=== PATIENT | male | born 1970 | race Caucasian/White ===

== ENCOUNTER 2018-06-19 15:05 | Inpatient (IN) ==
[2018-06-19] MEDS ORDERED: CLINDAMYCIN PHOSPHATE 600 MG in DEXTROSE 5 % IN WATER 100 ML IV ONE ×2 (15:40)
[2018-06-19 16:05] LABS: Hemoglobin 11.3 gm/dL (13.5-18.0); Mean Cell Volume 92.9 fl (78-100); Mean Corpuscular Hemoglobin 30.9 pg (27-31); Mean Corpuscular Hgb Conc 33.2 g/dl (32-36); Mean Platelet Volume 8.8 fl (8-11.3); Neutrophil # 6.9 K/mm3 (1.3-6.0); Platelet Count 344 K/mm3 (150-450); Red Blood Count 3.66 M/mm3 (4.7-6.0); Red Cell Distribution Width 11.9 % (11.5-14.0); White Blood Count 9.9 K/mm3 (4.0-10.5)
[2018-06-19 16:15] LABS: Albumin * 3.6 gm/dl (3.4-5.0); BUN/Creatinine Ratio 11.5 (9.0-21.6); Bilirubin, Total 0.3 mg/dL (0.0-1.1); CRP 3.9 mg/dL (0.0-0.9); Ca. Corrected For Albumin 8.1 mg/dL (8.4-10.2); Calcium * 8.1 mg/dL (7.9-10.9); Carbon Dioxide 29.3 mmol/L (24-32.6); Potassium 4.3 mmol/L (3.4-4.6); Total Protein 7.6 gm/dL (6.2-8.2)
[2018-06-19] MEDS ORDERED: VANCOMYCIN HCL 1 GM in DEXTROSE 5 % IN WATER 250 ML IV ONE ×2 (17:00)
--- NOTE | 2018-06-19 17:45 | ERNOTE ---
Lower Extremity HPI - Narrative Date of Service: 06/19/18 - General Lower Extremities Pain: foot: left Time Seen by Provider: 06/19/18 15:24 Source: patient Exam Limitations: no limitations - Immun/Allergies/Home Medications Immunizations: IMMUNIZATION HX Immunizations Up to Date Yes History of Influenza Vaccine Yes Allergies/Adverse Reactions: Allergies Allergy/AdvReac Type Severity Reaction Status Date / Time cetirizine [From [facility]] Allergy Verified 06/19/18 15:16 Home Medications: HOME MEDICATIONS Gabapentin [Neurontin] 100 mg PO DAILY 06/19/18 [Last Taken Unknown] Insulin Glargine,Hum.rec.anlog [Lantus] 35 units SC HS 06/19/18 [Last Taken Unknown] Insulin Lispro [Humalog] 100 unit SQ 06/19/18 [Last Taken Unknown] traMADol HCL [Ultram] 50 mg PO DAILY 06/19/18 [Last Taken Unknown] - History of Present Illness Narrative: Patient presents to the ED for left foot problem. He is a diabetic who has been having problems with his left foot ever since stepping on a nail in March. he was in the Hospital for this in [place], had surgery. Has been on outpatient courses of ABx (Bactrim). Just had a culture by PCP but not currently on ABx. Old wound has opened up and more redness and swelling noted. No fever. This has been worsening since going back to work and being on it in steel toed boots Occurred: other - gradually worsening over the last couple of days Location of Incident: other - no new injury Method of Injury: Reports: other - originally a nail injury Modifying Factors - (Improves): Reports: other - nothing Modifying Factors - (Worsens): Reports: other - nothign Associated Symptoms: Denies: unable to bear weight Other Injuries: Reports: none Subsequent Symptoms: Denies: motor loss Prior Treament: Reports: recently seen, treated by physician Review of Systems - Review of Systems Constitutional: Absent: fever Respiratory: Absent: shortness of breath Cardiology: Absent: chest pain Gastrointestinal/Abdominal: Absent: abdominal pain Genitourinary: Absent: dysuria All Other Systems: All systems neg except as marked Medical History (Last Reviewed 06/19/18 @ 17:40 by Black Vidales MD) Diabetes mellitus Hypertension Surgical History: Surgical History (Last Reviewed 06/19/18 @ 17:40 by Black Vidales MD) H/O foot surgery History of cataract surgery Social History: Preferred Language Korean Smoking Status Current every day smoker Alcohol Use none Drug Use none No Social History Section defined Physical Exam - Physical Exam General Appearance: Present: alert, no apparent distress Head Exam: Present: normal inspection, no evidence of injury Eye Exam: Normal inspection: bilateral, PERRL: bilateral Ears, Nose, Throat: Present: normal ENT inspection Neck: Present: normal inspection Respiratory: Present: no respiratory distress Cardiovascular/Chest: Present: regular rate, rhythm, normal peripheral pulses Gastrointestinal/Abdominal: Present: nontender, soft Back Exam: Present: normal range of motion Extremity Exam: Present: other - redness and swelling left foot. redness especially around secvond and 3rd toes but also up onto the dorsum of the foot. No necrotic areas. samll apparent area of pus at the base of the 2nd toe. No evidenc eof nec fasc. Neurological Exam: Present: alert, no motor/sensory deficits Skin Exam: Present: normal color, warm/dry, other - apparent cellulitis left foot ED Progress - Results and Orders Patient's Lab Results:: I have reviewed the patient's lab results. - Vital Signs Patient's Vital Signs:: I have reviewed the patient's vital signs. Vital Signs: Vital Signs 06/19/18 15:08 Temperature 36.4 C Pulse Rate 94 Respiratory Rate 12 Blood Pressure 150/83 H O2 Sat by Pulse Oximetry 100 - X-Ray X-Ray #1 X-Ray: foot Interpretation: Interp. by me X-ray Comments: apparent osteo head of 2nd metatarsal - Progress/Reassessment Chief Complaint: Foot Injury/Pain Progress Note-Subjective: 06/19/18 17:43 IV ABx given. D/W Dr Alex and Mir Cornelius. Will admit. Patient agreeable. Departure Clinical Impression: Diabetes, Foot infection, Osteomyelitis - Departure Disposition: Still a patient Condition: Stable
--- NOTE | 2018-06-19 18:53 | HP ---
Chief Complaint - Chief Complaint Date of Service: 06/19/18 Time of Service: 18:26 Chief Complaint: foot wound History of Present Illness: Patient with a PMHx of Type I diabetes presents with worsening foot wound. He stepped on a nail in March, and underwent surgery in [place], [place] April 21. He believes that during that surgery, soft tissue was debrided, but he does not believe any bone was removed. A few weeks after that surgery, he again developed redness and was put on an antibiotic, which caused him to break out in hives over his legs. He received a steroid shot and his glucose increased to greater than 500. His baseline blood sugar is around 200. He has not been on antibiotics for about a month. He has been working, and would have some swelling in that foot. Over the last 2 days, he noticed increased swelling and redness, and noticed pus oozing from between his toes. He denies fever, changes in appetite, body aches, diarrhea, or other symptoms. Medical History (Last Reviewed 06/19/18 @ 17:40 by Black Vidales MD) Diabetes mellitus Hypertension Surgical History: Surgical History (Last Reviewed 06/19/18 @ 17:40 by Black Vidales MD) H/O foot surgery History of cataract surgery Family History: Family History (Last Updated 06/19/18 @ 18:16 by Alison Alvarado RN) Other No pertinent family history Social History: Preferred Language Greek Smoking Status Current every day smoker Alcohol Use none Drug Use none No Social History Section defined Review Of Systems (GEN) - Review of Systems Generalized/Overall Review: Absent: Fever Respiratory: Absent: Shortness of Breath Cardiac: Present: Edema. Absent: Chest Pain Abdominal: Absent: Vomiting, Diarrhea Genitourinary: Absent: Dysuria Musculoskeletal: Present: Joint Pain - hands and shoulders Immunizations: IMMUNIZATION HX Immunizations Up to Date Yes History of Influenza Vaccine Yes Allergies/Adverse Reactions: Allergies Allergy/AdvReac Type Severity Reaction Status Date / Time cetirizine [From [facility]] Allergy Hives Verified 06/19/18 18:33 Home Medications: HOME MEDICATIONS Gabapentin [Neurontin] 100 mg PO DAILY 06/19/18 [Last Taken Unknown] Insulin Glargine,Hum.rec.anlog [Lantus] 35 units SC HS 06/19/18 [Last Taken Unknown] Insulin Lispro [Humalog] 100 unit SQ 06/19/18 [Last Taken Unknown] traMADol HCL [Ultram] 50 mg PO DAILY 06/19/18 [Last Taken Unknown] Exam - Exam Vital Signs: Vital Signs - Last Taken Temp 36.4 C 06/19/18 15:08 Pulse 91 06/19/18 17:23 Resp 15 06/19/18 17:23 BP 143/80 H 06/19/18 17:23 Pulse Ox 100 06/19/18 17:23 Constitutional: Present: Alert, Oriented x3, Cooperative, No distress Neck: Absent: lymphadenopathy (R), lymphadenopathy (L) Respiratory: Present: lungs clear, normal breath sounds Cardiovascular/Chest: Present: regular rate, rhythm Abdomen: Present: soft, nontender Extremity: Present: other - Swelling at base of 2nd and 3rd digits, plantar surface. Drug Counselor discoloration, indicating possible fluid collection. Mild erythema on ventral surface at the base of 2nd-4th digits 2 cm healing incision on plantar surface in the region of 2nd metatarsah head. 1.5 cm eschar on medial ventral surface. Neurologic: Present: normal mood/affect Appearance: Present: appropriate appearance Diagnostic Studies: Abnormal Lab Results 06/19/18 06/19/18 06/19/18 Range/Units 15:45 15:45 15:45 RBC 3.66 L (4.7-6.0) M/mm3 Hgb 11.3 L (13.5-18.0) gm/dL Hct 34.0 L (42.0-52.0) % Immature Gran # (Auto) 0.04 H (0.000-0.0310) K/mm3 Lymphocytes % 18.8 L (20-51) % Eosinophils % 3.3 H (0.0-3.0) % Neutrophils # 6.9 H (1.3-6.0) K/mm3 ESR 73 H (0-10) mm/hr Creatinine 1.91 H (0.4-1.4) mg/dL Est GFR (Non-Af Amer) 40 L (60-130) mL/min Random Glucose 313 H (70-110) mg/dL Calcium Adj for Albumin 8.1 L (8.4-10.2) mg/dL ALT 17 L (19-67) U/L C-Reactive Prot, Quant 3.9 H (0.0-0.9) mg/dL Laboratory Results WBC 9.9 K/mm3 (4.0-10.5) 06/19/18 15:45 RBC 3.66 M/mm3 (4.7-6.0) L 06/19/18 15:45 Hgb 11.3 gm/dL (13.5-18.0) L 06/19/18 15:45 Hct 34.0 % (42.0-52.0) L 06/19/18 15:45 MCV 92.9 fl (78-100) 06/19/18 15:45 MCH 30.9 pg (27-31) 06/19/18 15:45 MCHC 33.2 g/dl (32-36) 06/19/18 15:45 RDW 11.9 % (11.5-14.0) 06/19/18 15:45 Plt Count 344 K/mm3 (150-450) 06/19/18 15:45 MPV 8.8 fl (8-11.3) 06/19/18 15:45 Immature Gran % (Auto) 0.40 % (0.001-0.429) 06/19/18 15:45 Immature Gran # (Auto) 0.04 K/mm3 (0.000-0.0310) H 06/19/18 15:45 Neutrophils % 70.0 % (42-75.0) 06/19/18 15:45 Lymphocytes % 18.8 % (20-51) L 06/19/18 15:45 Monocytes % 7.1 % (0.0-9) 06/19/18 15:45 Eosinophils % 3.3 % (0.0-3.0) H 06/19/18 15:45 Basophils % 0.4 % (0.0-1.0) 06/19/18 15:45 Nucleated RBC % 0.0 k/mm3 (0-1) 06/19/18 15:45 Neutrophils # 6.9 K/mm3 (1.3-6.0) H 06/19/18 15:45 Lymphocytes # 1.86 k/mm3 (1.5-3.5) 06/19/18 15:45 Monocytes # 0.7 k/mm3 (0.0-1.0) 06/19/18 15:45 Eosinophils # 0.3 k/mm3 (0.0-0.7) 06/19/18 15:45 Absolute Basophils 0.0 k/mm3 (0.0-0.1) 06/19/18 15:45 ESR 73 mm/hr (0-10) H 06/19/18 15:45 Sodium 134 mmol/L (132-142) 06/19/18 15:45 Plasma Sodium 137 mmol/L (130-142) 06/19/18 15:45 Potassium 4.3 mmol/L (3.4-4.6) 06/19/18 15:45 Chloride 100 mmol/L (97-106) 06/19/18 15:45 Carbon Dioxide 29.3 mmol/L (24-32.6) 06/19/18 15:45 Anion Gap 9.0 mmol/L (6.8-13.8) 06/19/18 15:45 BUN 22 mg/dL (6-23) 06/19/18 15:45 Creatinine 1.91 mg/dL (0.4-1.4) H 06/19/18 15:45 Est GFR (Non-Af Amer) 40 mL/min (60-130) L 06/19/18 15:45 BUN/Creatinine Ratio 11.5 (9.0-21.6) 06/19/18 15:45 Random Glucose 313 mg/dL (70-110) H 06/19/18 15:45 Lactic Acid, Venous 0.9 mmol/L (0.4-2.0) 06/19/18 15:45 Calcium 8.1 mg/dL (7.9-10.9) 06/19/18 15:45 Calcium Adj for Albumin 8.1 mg/dL (8.4-10.2) L 06/19/18 15:45 Total Bilirubin 0.3 mg/dL (0.0-1.1) 06/19/18 15:45 AST 11 U/L (0-48) 06/19/18 15:45 ALT 17 U/L (19-67) L 06/19/18 15:45 Alkaline Phosphatase 116 U/L (50-170) 06/19/18 15:45 C-Reactive Prot, Quant 3.9 mg/dL (0.0-0.9) H 06/19/18 15:45 Total Protein 7.6 gm/dL (6.2-8.2) 06/19/18 15:45 Albumin 3.6 gm/dl (3.4-5.0) 06/19/18 15:45 Assessment/Plan - Assessment/Plan (1) Foot infection Assessment: Left foot xrays highly suggestive of osteomyelitis. It is Thursday, and can not get an MRI. He was started on vancomycin and clinda, and will continue. Pharmacy to dose vancomycin, as his creatinine is increased. Ortho has been consulted. WBC not elevated. Blood culture pending. ESR, CRP elevated. Problem: Acute (2) Diabetes Assessment: He reports being diagnosed with diabetes at age 10, but is not sure which type. Likely type I. He takes 35 U lantus daily, and SSI with meals. Will obtain bl ood glucose checks at mealtime and qhs. Problem: Chronic Qualifiers: Diabetes mellitus type: type 1 (3) HTN (hypertension) Assessment: He takes 10 mg amlodipine at home, and will continue. BP currently mildly elevated. Problem: Chronic (4) Joint pain Assessment: Takes tramadol and gabapentin at home for shoulder and hand cramping and pain, and will continue. Problem: Chronic
[2018-06-19] MEDS: NORMAL SALINE 1,000 ML IV PRN (19:04)
[2018-06-19] MEDS ORDERED: CLINDAMYCIN PHOSPHATE 600 MG in DEXTROSE 5 % IN WATER 100 ML IV SCH ×2 (19:15)
[2018-06-19] MEDS ORDERED: INSULIN GLARGINE,HUM.REC.ANLOG 100 UNITS/ML VIAL SC SCH (21:00)
[2018-06-19] MEDS: INSULIN LISPRO 100 UNITS/ML VIAL SC SCH (21:41)
[2018-06-19] MEDS: GABAPENTIN 100 MG CAPSULE PO SCH (21:42)
[2018-06-19] MEDS: traMADol HCL 50 MG TABLET PO SCH (21:42)
[2018-06-20] MEDS: CLINDAMYCIN PHOSPHATE 600 MG in DEXTROSE 5 % IN WATER 100 ML IV SCH ×6 (01:03→16:49)
[2018-06-20] MEDS: NORMAL SALINE 1,000 ML IV PRN ×3 (02:58→18:42)
[2018-06-20] MEDS ORDERED: DEXTROSE 5 % IN WATER 1,000 ML IV PRN (06:56)
[2018-06-20] MEDS ORDERED: DEXTROSE 50%-WATER 50 ML SYRG IV ONE (07:01)
[2018-06-20] MEDS: INSULIN LISPRO 100 UNITS/ML VIAL SC SCH ×4 (07:02→21:34)
[2018-06-20 07:36] LABS: Anion Gap 13.4 mmol/L (6.8-13.8); BUN/Creatinine Ratio 10.8 (9.0-21.6); Calcium * 8.4 mg/dL (7.9-10.9); Carbon Dioxide 27.3 mmol/L (24-32.6); Estimated Creat Clear 50.3; Potassium 3.7 mmol/L (3.4-4.6)
[2018-06-20] MEDS: INSULIN GLARGINE,HUM.REC.ANLOG 100 UNITS/ML VIAL SC SCH (08:26)
[2018-06-20] MEDS ORDERED: GABAPENTIN 100 MG CAPSULE PO SCH (09:00)
[2018-06-20] MEDS ORDERED: traMADol HCL 50 MG TABLET PO SCH (09:00)
--- NOTE | 2018-06-20 09:10 | PN ---
Subjective - Date and Time Seen Date: 06/20/18 Time: 09:08 Subjective Narrative: His foot feels similar to yesterday. He declined his evening humalog. Is able to ambulate to the bathroom. AM glucose today was 40, improved with 1/2 amp of D50. No new concerns. Objective - Review of Systems Generalized/Overall Review: Denies: Fever Cardiac: Denies: Chest Pain, Edema Abdominal: Denies: Nausea, Diarrhea Musculoskeletal Complaints: Reports: Other - left foot pain and swelling - Vitals Vitals: Last Vital Signs Temp 37.3 C 06/20/18 08:20 Pulse 83 06/20/18 08:20 Resp 16 06/20/18 08:20 BP 139/71 06/20/18 08:20 Pulse Ox 97 06/20/18 08:20 - Abnormal Lab Findings Abnormal Lab Findings: Abnormal Lab Results 06/19/18 06/19/18 06/19/18 Range/Units 15:45 15:45 15:45 RBC 3.66 L (4.7-6.0) M/mm3 Hgb 11.3 L (13.5-18.0) gm/dL Hct 34.0 L (42.0-52.0) % Immature Gran # (Auto) 0.04 H (0.000-0.0310) K/mm3 Lymphocytes % 18.8 L (20-51) % Eosinophils % 3.3 H (0.0-3.0) % Neutrophils # 6.9 H (1.3-6.0) K/mm3 ESR 73 H (0-10) mm/hr Sodium (132-142) mmol/L Creatinine 1.91 H (0.4-1.4) mg/dL Est GFR (Non-Af Amer) 40 L (60-130) mL/min Random Glucose 313 H (70-110) mg/dL Calcium Adj for Albumin 8.1 L (8.4-10.2) mg/dL ALT 17 L (19-67) U/L C-Reactive Prot, Quant 3.9 H (0.0-0.9) mg/dL 06/20/18 Range/Units 07:11 RBC (4.7-6.0) M/mm3 Hgb (13.5-18.0) gm/dL Hct (42.0-52.0) % Immature Gran # (Auto) (0.000-0.0310) K/mm3 Lymphocytes % (20-51) % Eosinophils % (0.0-3.0) % Neutrophils # (1.3-6.0) K/mm3 ESR (0-10) mm/hr Sodium 143 H (132-142) mmol/L Creatinine 1.66 H (0.4-1.4) mg/dL Est GFR (Non-Af Amer) 47 L (60-130) mL/min Random Glucose 42 L D (70-110) mg/dL Calcium Adj for Albumin (8.4-10.2) mg/dL ALT (19-67) U/L C-Reactive Prot, Quant (0.0-0.9) mg/dL - Exam Constitutional: Present: Alert, Cooperative, Well developed, No distress Respiratory: Present: lungs clear, normal breath sounds Cardiovascular/Chest: Present: regular rate, rhythm Abdomen: Present: Normal bowel sounds, soft, nontender Extremity: Present: other - Present: other - Swelling at base of 2nd and 3rd digits, plantar surface. Research Intern discoloration of skin, indicating possible fluid collection. Mild erythema on ventral surface at the base of 2nd-4th digits 2 cm healing incision on plantar surface in the region of 2nd metatarsal head. 1.5 cm eschar on medial ventral surface. Appearance: Present: appropriate appearance Eye contact: Present: cooperative Assessment/Plan - Problems/Diagnosis (1) Foot infection Problem: Acute Narrative: Day #2 of vanc and clindamycin. Xrays strongly suggestive of osteomyelitis, but can not verify with MRI today since it is the weekend. This has been ordered for tomorrow. ED physician consulted ortho yesterday, and will verify today. WBC not elevated, and he is afebrile. He has had this infection for approximately 2 months. Discussed with him the possibility he will likely need surgery, and may be on extended antibiotics. (2) Diabetes Problem: Chronic Qualifiers: Diabetes mellitus type: type 1 Narrative: He is not sure which type of diabetes he has, but is likely type I since he was diagnosed at age 10. Today's lantus held, as he is NPO in case he'll be having a procedure. His glucose decreased to 40 this morning, improved after 1/2 amp of D50. NS running. Continue blood glucose checks with meals and bedtime. discussed importance of keeping his glucose less than 200 for optimal wound healing. (3) Acute kidney injury Problem: Acute Narrative: Creatinine improved to 1.66 from 1.91. Since he has been diagnosed with diabetes for 38 years, this is likely diabetic sequela. Continue fluids while NPO. (4) HTN (hypertension) Problem: Chronic Narrative: continue home amlodipine. (5) Joint pain Problem: Chronic Narrative: He reports having hand and shoulder cramping, for which he takes gabapentin and tramadol, and will continue.
--- NOTE | 2018-06-20 11:14 | CONS ---
- Reason for consultation (2) Osteomyelitis Date of Service: 06/20/18 HPI - General Narrative: Terra is that ongoing problems with his left foot since sustaining an injury in March when he stepped on a nail that went through his shoe and into his foot. It initially followed with doctors and Sandra and eventually had a treated with I&D and Juliocesar [place] with a four roll calender operator. They are not sure what bacteria they were treating but they were sent home on Bactrim DS. They state he is always had swelling and some discomfort around his second toe. This had been persistent since surgery and being on antibiotics. They did also go through a course of steroids which they didn't feel helped the swelling but he had persistent pain and discoloration around the second toe. They report last Thursday his pain and swelling did increase and he did not feel they were getting anywhere with this physician and Juliocesar said he presented to our emergency department. He had x-rays obtained in the ER which showed fracture of the second metatarsal head as well as third metatarsal consistent with concerns for osteomyelitis causing pathological fracture. Is currently admitted to Dr. Alex service. - History of Present Illness Allergies/Adverse Reactions: Allergies cetirizine [From [facility]] Allergy (Verified 06/19/18 18:33) Hives Home Medications: Home Medications Medication Instructions Recorded Last Taken Amlodipine Besylate 10 mg PO DAILY 06/19/18 06/19/18 09:00 Gabapentin [Neurontin] 100 mg PO DAILY 06/19/18 06/18/18 21:00 Insulin Glargine,Hum.rec.anlog 35 units SC HS 06/19/18 06/19/18 09:00 [Lantus] Insulin Lispro [Humalog] 100 unit SQ 06/19/18 06/19/18 15:00 traMADol HCL [Ultram] 50 mg PO DAILY 06/19/18 06/18/18 21:00 Medications - Medications Current Medications: Current Medications Gabapentin (Neurontin) 100 mg PO HS JORGE Stop: 07/19/18 21:01 Last Admin: 06/19/18 21:42 Dose: 100 mg Sodium Chloride (Sodium Chloride 0.9%) 1,000 mls @ 125 mls/hr IV .Q8H PRN PRN Reason: HYDRATION Stop: 07/19/18 18:26 Last Admin: 06/20/18 02:58 Dose: 125 mls/hr Clindamycin Phosphate 600 mg/ (Dextrose/Water) 104 mls @ 300 mls/hr IV Q8H [facility]; Protocol Stop: 07/20/18 01:01 Last Infusion: 06/20/18 09:46 Dose: Infused Sodium Chloride (Sodium Chloride 0.9%) 1,000 mls @ 115 mls/hr IV .Q8H42M PRN PRN Reason: HYDRATION Stop: 07/20/18 09:08 Last Admin: 06/20/18 09:00 Dose: 115 mls/hr Insulin Glargine (Lantus) 35 units SC DAILY JORGE Stop: 07/20/18 09:01 Last Admin: 06/20/18 08:26 Dose: Not Given Insulin Human Lispro (Humalog) 0 units SC ACHSINS [facility]; Protocol Stop: 07/19/18 21:01 Last Admin: 06/20/18 07:02 Dose: Not Given Tramadol HCl (Ultram) 50 mg PO HS JORGE Stop: 07/19/18 21:01 Last Admin: 06/19/18 21:42 Dose: 50 mg Physical Examination - Exam Narrative: Left foot is swollen. He's had 2+ dorsalis pedis pulse. Reports sensation to touch. His local erythema dorsal foot around the second metatarsal head. His local tenderness palpating second metatarsal head. Toes appear viable with good color at this time. There is no active areas of drainage. Ankle range of motion does not produce any pain in the ankle is got no gross swelling in the ankle. He does not have any hair on his lower legs. X-rays reviewed show lytic changes and fracture of the second metatarsal head fracture of the third metatarsal head. CRP was 3.9 white count 11,900 cultures at this point in time from the emergency department showed no growth. Vital Signs: Vital Signs - Last Taken Temp 37.2 C 06/20/18 10:16 Pulse 89 06/20/18 10:16 Resp 20 06/20/18 10:16 BP 139/69 06/20/18 10:16 Pulse Ox 99 06/20/18 10:16 O2 Oxygen Delivery Method Room Air - Results and Findings: Lab/Microbiology results last 24 hrs: Abnormal/Pending Laboratory Last 24 HRS 06/20/18 06/19/18 06/19/18 07:11 15:45 15:45 RBC Hgb Hct Immature Gran # (Auto) Lymphocytes % Eosinophils % Neutrophils # ESR 73 H Sodium 143 H Creatinine 1.66 H 1.91 H Est GFR (Non-Af Amer) 47 L 40 L Random Glucose 42 L D 313 H Calcium Adj for Albumin 8.1 L ALT 17 L C-Reactive Prot, Quant 3.9 H 06/19/18 15:45 RBC 3.66 L Hgb 11.3 L Hct 34.0 L Immature Gran # (Auto) 0.04 H Lymphocytes % 18.8 L Eosinophils % 3.3 H Neutrophils # 6.9 H ESR Sodium Creatinine Est GFR (Non-Af Amer) Random Glucose Calcium Adj for Albumin ALT C-Reactive Prot, Quant Culture 06/19/18 16:31 Wound Culture - Preliminary Foot - Left No Growth - Assessments/Findings (1) Foot infection Problem: Acute (2) Osteomyelitis Diagnosis(s): Discussed was Terra and his exam findings are consistent for concerns of osteomyelitis with local abscess. He has an MRI pending to be done tomorrow. I discussed with him that most likely he will need I&D of his forefoot and excision of necrotic bone and tissue. Reviewed the case with Dr. Yee as well as got a hold of Dr. Jain are four roll calender operator about possible management. Dr. Jain is getting evaluated tomorrow morning. He'll be nothing by mouth midnight tonight. Continue antibiotics at this point in time. Problem: Acute
[2018-06-20] MEDS: VANCOMYCIN HCL 1.5 GM in DEXTROSE 5 % IN WATER 500 ML IV SCH ×2 (18:45)
[2018-06-20] MEDS: GABAPENTIN 100 MG CAPSULE PO SCH (21:29)
[2018-06-20] MEDS: traMADol HCL 50 MG TABLET PO SCH (21:37)
[2018-06-21] MEDS: CLINDAMYCIN PHOSPHATE 600 MG in DEXTROSE 5 % IN WATER 100 ML IV SCH ×4 (01:19→08:17)
[2018-06-21] MEDS: INSULIN LISPRO 100 UNITS/ML VIAL SC SCH ×4 (06:59→20:15)
[2018-06-21] MEDS: NORMAL SALINE 1,000 ML IV PRN ×2 (06:59→23:29)
--- NOTE | 2018-06-21 08:01 | PN ---
Subjective Subjective Narrative: He has had increased swelling since yesterday, and is having drainage between his 2nd and 3rd digits. He declined 12 U of humalog last night, stating he never gives himself more than 4 U at a time. Objective - Review of Systems Generalized/Overall Review: Denies: Fever Respiratory: Denies: Shortness of Breath Cardiac: Denies: Chest Pain Abdominal: Denies: Nausea Musculoskeletal Complaints: Reports: Other - left foot pain, swelling, drainage - Vitals Vitals: Last Vital Signs Temp 37.1 C 06/21/18 06:00 Pulse 88 06/21/18 06:00 Resp 20 06/21/18 06:00 BP 153/71 H 06/21/18 06:00 Pulse Ox 100 06/21/18 06:00 - Exam Constitutional: Present: Alert, Oriented x3, Cooperative, Well developed, Well nourished, No distress Respiratory: Present: normal breath sounds, no respiratory distress Cardiovascular/Chest: Present: regular rate, rhythm Abdomen: Present: soft, nontender Extremity: Present: lower extremity edema - left foot, 2+, increased from yesterday Skin Exam: Present: other - erythema of ventral surface, slight increase from yesterday, purulent oozing between 2nd and 3rd toes, and localized swelling on plantar surface with likely fluid collection Appearance: Present: appropriate appearance Eye contact: Present: cooperative Assessment/Plan - Problems/Diagnosis (1) Foot infection Problem: Acute Narrative: Day #3 of vanc and clindamycin. Worsening appearance from yesterday. Likely needs I&D to improve. Xrays strongly suggestive of osteomyelitis, and MRI pending today. Dr. Jain has agreed to see him today, and he is NPO for possible procedure.. WBC not elevated, and he is afebrile. He has had this infection for approximately 2 months. He also has diabetes, and discussed the importance of keeping his blood sugars less than 200 for optimal healing. (2) Diabetes Problem: Chronic Qualifiers: Diabetes mellitus type: type 1 Narrative: His blood sugars have been fluctuating. Have held his home lantus since he is NPO for possible surgery. He reports only giving himself no more than 4 U humalog at home no matter what his blood sugar is. He admitted to having sugars in the 500s since this infection has developed. While this is not optimal control, I may not be able to convince him of this during this admission. Was diagnosed at age 10. (3) Acute kidney injury Problem: Acute Narrative: Repeat pending in the am. (4) HTN (hypertension) Problem: Chronic Narrative: Continue home amlodipine. (5) Joint pain Problem: Chronic Narrative: continue home tramadol and gabapentin.
[2018-06-21] MEDS: INSULIN GLARGINE,HUM.REC.ANLOG 100 UNITS/ML VIAL SC SCH (08:17)
[2018-06-21] MEDS ORDERED: LORazepam 2 MG/ML DISP.SYRIN IV ONE (11:20)
[2018-06-21] MEDS: LEVOFLOXACIN IN DEXTROSE 5 % 750 MG/150 ML BAG IV SCH (12:31)
[2018-06-21] MEDS: ACETAMINOPHEN 325 MG TABLET PO PRN (13:36)
[2018-06-21] MEDS ORDERED: ONDANSETRON HCL/PF 2 MG/ML VIAL IV PRN (15:02)
--- NOTE | 2018-06-21 16:31 | CONS ---
[facility] - General Date of Service: 06/21/18 Narrative: Patient admitted with worsening infection of his left foot. States that he has had ongoing problems with his left foot since a puncture injury that occurred in March of this year when he stepped on a nail that went through his shoe and into his foot. Relates that he initially underwent I&D and [place] with a Government Relations Analyst approximately 1 week following the injury. They were sent home on Bactrim DS. He states he has continued to have swelling and some discomfort in this foot, mostly around his second toe. It will improve some when on ABX, however as soon as he finishes, the swelling, redness, and pain return. States that his last course of ABX did cause him to develop a rash on his body so he did complete a course of steroids, which they state helped his rash, but his swelling and redness continued. He and his have tried on several occasions to relate their concerns to both his Government Relations Analyst and his PCP, both of which would just put him back on an ABX and send him home. They did not feel as though their concerns of recurrent infections and the underlying cause were being addressed. Reports this last Thursday his pain and swelling increased significantly and since they did not feel they were getting anywhere with their previous Government Relations Analyst or PCP, he presented to our emergency department. He had x-rays obtained in the ER which showed concerns for osteomyelitis with pathologic fracturing of the heads of the 2nd and 3rd metatarsal heads. He was evaluated by our Orthopedic department, ROOSEVELT Vinson, who contacted me for surgical management of his foot. He was to have an MRI this morning, however du e to movement, MRI was unable to be obtained. Plan for MRI under sedation tomorrow. Source: patient, family Exam Limitations: no limitations - History of Present Illness Allergies/Adverse Reactions: Allergies cetirizine [From Zyrtec] Allergy (Verified 06/19/18 18:33) Hives Home Medications: Home Medications Medication Instructions Recorded Last Taken Amlodipine Besylate 10 mg PO DAILY 06/19/18 06/19/18 09:00 Gabapentin [Neurontin] 100 mg PO DAILY 06/19/18 06/18/18 21:00 Insulin Glargine,Hum.rec.anlog 35 units SC HS 06/19/18 06/19/18 09:00 [Lantus] Insulin Lispro [Humalog] 100 unit SQ 06/19/18 06/19/18 15:00 traMADol HCL [Ultram] 50 mg PO DAILY 06/19/18 06/18/18 21:00 Medications - Medications Current Medications: Current Medications Acetaminophen (Tylenol) 650 mg PO Q6H PRN PRN Reason: Mild pain (pain scale 1-3) Stop: 07/21/18 13:30 Last Admin: 06/21/18 13:36 Dose: 650 mg Gabapentin (Neurontin) 100 mg PO [facility] Stop: 07/19/18 21:01 Last Admin: 06/20/18 21:29 Dose: 100 mg Sodium Chloride (Sodium Chloride 0.9%) 1,000 mls @ 125 mls/hr IV .Q8H PRN PRN Reason: HYDRATION Stop: 07/19/18 18:26 Last Infusion: 06/20/18 17:27 Dose: Infused Sodium Chloride (Sodium Chloride 0.9%) 1,000 mls @ 115 mls/hr IV .Q8H42M PRN PRN Reason: HYDRATION Stop: 07/20/18 09:08 Last Admin: 06/21/18 06:59 Dose: 115 mls/hr Vancomycin HCl 1.5 gm/ (Dextrose/Water) 500 mls @ 220 mls/hr IV Q24H [facility]; Protocol Stop: 07/20/18 19:01 Last Infusion: 06/20/18 21:02 Dose: Infused Levofloxacin/Dextrose (Levaquin) 750 mg in 150 mls @ 100 mls/hr IV Q24H [facility]; Protocol Stop: 07/21/18 11:46 Last Admin: 06/21/18 12:31 Dose: 100 mls/hr Insulin Glargine (Lantus) 35 units SC DAILY [facility] Stop: 07/20/18 09:01 Last Admin: 06/21/18 08:17 Dose: Not Given Insulin Human Lispro (Humalog) 0 units SC [facility]; Protocol Stop: 07/19/18 21:01 Last Admin: 06/21/18 11:36 Dose: Not Given Ondansetron HCl (Zofran) 4 mg IV Q6H PRN PRN Reason: Nausea And Vomiting Stop: 07/21/18 15:03 Last Admin: 11/05/18 15:27 Dose: 4 mg Tramadol HCl (Ultram) 50 mg PO HS [facility] Stop: 07/19/18 21:01 Last Admin: 06/20/18 21:37 Dose: 50 mg Review of Systems - Review of Systems Generalized/Overall Review: Absent: Chills, Fever Respiratory: Absent: Shortness of Breath Cardiac: Present: Edema Abdominal: Absent: Vomiting, Diarrhea Musculoskeletal: Present: Other - left foot pain Skin: Present: Other - Redness and swelling left forefoot, puncture wound to plantar left forefoot Physical Examination - Exam Narrative: Xray left foot reviewed. Pathologic fractures of distal 2nd and 3rd metatarsal, possibly base of 2nd toe. No gas noted in tissues. Vital Signs: Vital Signs - Last Taken Temp 36.6 C 06/21/18 14:32 Pulse 88 06/21/18 14:32 Resp 18 06/21/18 14:32 BP 127/79 06/21/18 14:32 Pulse Ox 99 06/21/18 14:32 O2 Oxygen Delivery Method Room Air Constitutional: Present: Alert, Oriented x3, Cooperative Peripheral Pulses: dorsalis-pedis (L): 2+ Extremity: Present: pedal edema - left forefoot Skin Exam: Present: other - Erythema localized to the left forefoot, most notable about the bases of the 2nd and 3rd toes with associated swelling. There is some active sero-purulent drainage from the 2nd interspace that appears to be coming from an ulceration that has developed at the lateral base of the 2nd t oe. Skin is macerated and sloughing between these toes. Area is exquisitly tender to touch. Previous puncture to plantar foot underlying area between 2nd and 3rd metatarsal heads is closed on evaluation, no drainage from this area. Appearance: Present: disheveled - Results and Findings: Lab/Microbiology results last 24 hrs: Culture 06/19/18 16:00 Blood Culture - Preliminary Blood NO GROWTH AFTER 48 HOURS 06/19/18 15:45 Blood Culture - Preliminary Blood NO GROWTH AFTER 48 HOURS 06/19/18 16:31 Wound Culture - Final Foot - Left No Pathogens Isolated 06/19/18 18:35 - Final Nares MRSA Negative - Assessments/Findings (1) Osteomyelitis Diagnosis(s): Pt evaluated, chart and xrays reviewed. Discussed with patient findings and treatment options moving forward. Recommend surgical debridement, however prefer to await MRI results to know how extensive of a debridement he will require. Advised it could be just removing the bone that appears infected on the xrays, or could involve an amputation of some degree - toe(s) vs possible TMA - pending his MRI results. Pt/ are in agreement with waiting for MRI before moving forward with surgery. Will continue with current IV ABX. Will plan deep cultures at the time of surgery to better determine what ABX would help resolve this infection. Dry gauze applied between 2nd/3rd toes since he now has a draining ulceration in this area. This will be changed by me at this time. Will continue to follow. Problem: Acute Qualifiers: Osteomyelitis type: unspecified type Osteomyelitis location: foot Laterality: left Qualified Code(s): M86.9 - Osteomyelitis, unspecified
[2018-06-21] MEDS: VANCOMYCIN HCL 1.5 GM in DEXTROSE 5 % IN WATER 500 ML IV SCH ×2 (18:54)
[2018-06-21] MEDS: GABAPENTIN 100 MG CAPSULE PO SCH (20:16)
[2018-06-21] MEDS: traMADol HCL 50 MG TABLET PO SCH (20:19)
[2018-06-22 05:49] LABS: Anion Gap 14.6 mmol/L (6.8-13.8); BUN/Creatinine Ratio 11.8 (9.0-21.6); Calcium * 8.6 mg/dL (7.9-10.9); Carbon Dioxide 23.1 mmol/L (24-32.6); Estimated Creat Clear 51.9; Hematocrit 30.7 % (42.0-52.0); Hemoglobin 10.2 gm/dL (13.5-18.0); Mean Cell Volume 90.6 fl (78-100); Mean Corpuscular Hemoglobin 30.1 pg (27-31); Mean Corpuscular Hgb Conc 33.2 g/dl (32-36); Mean Platelet Volume 8.8 fl (8-11.3); Neutrophil # 3.2 K/mm3 (1.3-6.0); Neutrophil % 64.8 % (42-75.0); Platelet Count 326 K/mm3 (150-450); Potassium 4.7 mmol/L (3.4-4.6); Red Blood Count 3.39 M/mm3 (4.7-6.0); Red Cell Distribution Width 11.7 % (11.5-14.0)
[2018-06-22] MEDS: INSULIN LISPRO 100 UNITS/ML VIAL SC SCH ×4 (07:00→21:42)
--- NOTE | 2018-06-22 07:37 | PN ---
Subjective - Date and Time Seen Date: 06/22/18 Time: 07:24 Subjective Narrative: He has recovered from his ativan yesterday. He was given 2 mg yesterday prior to his MRI to help him hold still, but it didn't work, and he developed vomiting and gait difficulty. No more vomiting this morning. He reports vomiting after prior surgery for several hours. Dr. Jain saw him yesterday afternoon. Discussed his diabetes. He doesn't like humalog because it works too fast. He'll often give himself the short acting insulin and get called away before he can eat, and gets too low. He has an appt with endocrinology in August. Objective - Review of Systems Generalized/Overall Review: Denies: Fever Cardiac: Denies: Chest Pain Abdominal: Reports: Vomiting - yesterday afternoon, none today Musculoskeletal Complaints: Reports: Other - left foot swelling - Vitals Vitals: Last Vital Signs Temp 36.9 C 06/22/18 03:12 Pulse 70 06/22/18 03:12 Resp 18 06/22/18 03:12 BP 158/78 H 06/22/18 03:12 Pulse Ox 96 06/22/18 03:12 - Abnormal Lab Findings Abnormal Lab Findings: Abnormal Lab Results 06/22/18 06/22/18 Range/Units 05:36 05:36 RBC 3.39 L (4.7-6.0) M/mm3 Hgb 10.2 L (13.5-18.0) gm/dL Hct 30.7 L (42.0-52.0) % Eosinophils % 3.4 H (0.0-3.0) % Lymphocytes # 1.15 L (1.5-3.5) k/mm3 Potassium 4.7 H D (3.4-4.6) mmol/L Carbon Dioxide 23.1 L (24-32.6) mmol/L Anion Gap 14.6 H (6.8-13.8) mmol/L Creatinine 1.61 H (0.4-1.4) mg/dL Est GFR (Non-Af Amer) 49 L (60-130) mL/min Random Glucose 271 H D (70-110) mg/dL - Exam Constitutional: Present: Alert, Oriented x3, Cooperative, No distress Respiratory: Present: normal breath sounds, no respiratory distress Cardiovascular/Chest: Present: regular rate, rhythm Abdomen: Present: soft, nontender Extremity: Present: other - left foot swelling, slight improvement from yesterday Skin Exam: Present: other - gauze in place between 2nd and 3rd toes with some strikethrough, erythema appears similar to yesterday Assessment/Plan - Problems/Diagnosis (1) Foot infection Problem: Acute Narrative: Day #4 of vanc. Clindamycin changed to levaquin yesterday. With his diabetic history, and injury stepping on a nail, strong possibility of pseudomonas. Xrays strongly suggestive of osteomyelitis, and MRI with sedation pending today. Dr. Jain is also following. He is NPO for possible procedure. WBC not elevated, and he is afebrile. He has had this infection for approximately 2 months. He also has diabetes, and discussed the importance of keeping his blood sugars less than 200 for optimal healing. (2) Diabetes Problem: Chronic Qualifiers: Diabetes mellitus type: type 1 Narrative: He gives himself 35 U lantus daily, and SSI with meals, never more than 4 U at a time. He has an appt with endocrinology in August. He admits to having difficulty eating regularly, and his blood sugars fluctuate. He understands that eating consistently will help regulate his sugars, but can't always carry that out. He is NPO pending procedure, and will hold his lantus today. continue low SSI. (3) Acute kidney injury Problem: Acute Narrative: Improving. Likely has CKD from longstanding diabetes. (4) HTN (hypertension) Problem: Chronic Narrative: continue home amlodipine. (5) Joint pain Problem: Chronic Narrative: continue tramadol and gabapentin.
[2018-06-22] MEDS: NORMAL SALINE 1,000 ML IV PRN ×2 (08:15→19:13)
--- NOTE | 2018-06-22 10:01 | ANES ---
Anesthesia Pre Procedure Eval Vitals/Labs: Last Vital Signs Temp 36.9 C 06/22/18 06:50 Pulse 93 06/22/18 06:50 Resp 12 06/22/18 06:50 BP 147/56 H 06/22/18 06:50 Pulse Ox 99 06/22/18 06:50 HOME MEDICATIONS Amlodipine Besylate 10 mg PO DAILY 06/19/18 [Last Taken 06/19/18 09:00] Gabapentin [Neurontin] 100 mg PO DAILY 06/19/18 [Last Taken 06/18/18 21:00] Insulin Glargine,Hum.rec.anlog [Lantus] 35 units SC HS 06/19/18 [Last Taken 06/19/18 09:00] Insulin Lispro [Humalog] 100 unit SQ 06/19/18 [Last Taken 06/19/18 15:00] traMADol HCL [Ultram] 50 mg PO DAILY 06/19/18 [Last Taken 06/18/18 21:00] Allergies/Adverse Reactions: Allergies Allergy/AdvReac Type Severity Reaction Status Date / Time cetirizine [From [facility]] Allergy Hives Verified 06/19/18 18:33 - Planned Procedure Planned Procedure: DIABETIC LEFT FOOT INFECTION WITH OSTEO Medication List Reviewed:: Yes Allergies Verified: Yes Medical History (Last Reviewed 06/22/18 @ 09:55 by Yomi Camacho CRNA) Diabetes mellitus Hypertension Surgical History (Last Reviewed 06/22/18 @ 09:55 by Yomi Camacho CRNA) H/O foot surgery History of cataract surgery Family History (Last Reviewed 06/22/18 @ 09:55 by Yomi Camacho CRNA) Mother Hypertension Father Cataract Stented coronary artery Other No pertinent family history - Family Anesthesia History Family History:: no untoward family reactions to anesthesia, no familial bleeding tendencies, no family history of clotting disorders, no family history of premature - Airway/Neck/Teeth Teeth Condition: None Denture Type: Full- Upper & Lower Neck Exam: non-tender Mallampatti Score: 1 Thyromental (T-M) distance: > 6 cm Mandibulo Hyoid distance: > 3 cm - Respiratory Respiratory: chest non-tender, lungs clear, normal breath sounds Smoking Status: Current every day smoker Discussed smoking cessation including day of surgery: Yes - none today Sleep Apnea currently treated: No Sleep Apnea by current assessment: No - Cardiovascular Patient History - Cardiac/Respiratory: Hypertension Tolerates Activity: Fair Heart Sounds: S1 & S2, Regular, Murmur - pancardio, PMI at base - Anesthesia Assessment and Plan ASA Class: PS, III Anesthesia Type Plan: MAC
--- NOTE | 2018-06-22 11:52 | ANES ---
Post Anesthesia Discharge - Transfer of Care Transfer of Care handoff given to nurse: Yes - Discharge to A[facility] Discharge to ASU-no complications/pt stable: Yes - Awake, appropriate
[2018-06-22] MEDS: LEVOFLOXACIN IN DEXTROSE 5 % 750 MG/150 ML BAG IV SCH (11:59)
[2018-06-22] MEDS: ACETAMINOPHEN 325 MG TABLET PO PRN ×2 (13:34→19:12)
--- NOTE | 2018-06-22 15:11 | ANES ---
Post Anesthesia Assessment - Vital Signs Vitals: Last Vital Signs Temp 36.4 C 06/22/18 14:50 Pulse 97 06/22/18 14:50 Resp 16 06/22/18 14:50 BP 139/67 06/22/18 14:50 Pulse Ox 100 06/22/18 14:50 Airway Patency: Normal - Mental Status Level Of Consciousness: Awake, Alert - Pain Level Pain Score: 0 - N/V Assessment Nausea/Vomiting Presence: None Dehydration:: No
--- NOTE | 2018-06-22 16:51 | PN ---
Subjective - Date and Time Seen Date: 06/22/18 Time: 16:31 Subjective Narrative: Pt evaluated at bedside resting. States that he is feeling much better today. Was able to have MRI this morning under sedation. Objective - Review of Systems Generalized/Overall Review: Denies: Chills, Fever, Malaise Respiratory: Denies: Shortness of Breath Cardiac: Reports: Edema Abdominal: Denies: Nausea, Vomiting Musculoskeletal Complaints: Reports: Other - left foot pain Skin: Reports: Other - erythema left foot, ulceration left 2nd toe - Vitals Vitals: Last Vital Signs Temp 36.4 C 06/22/18 14:50 Pulse 97 06/22/18 14:50 Resp 16 06/22/18 14:50 BP 139/67 06/22/18 14:50 Pulse Ox 100 06/22/18 14:50 - Abnormal Lab Findings Abnormal Lab Findings: Abnormal Lab Results 06/22/18 06/22/18 Range/Units 05:36 05:36 RBC 3.39 L (4.7-6.0) M/mm3 Hgb 10.2 L (13.5-18.0) gm/dL Hct 30.7 L (42.0-52.0) % Eosinophils % 3.4 H (0.0-3.0) % Lymphocytes # 1.15 L (1.5-3.5) k/mm3 Potassium 4.7 H D (3.4-4.6) mmol/L Carbon Dioxide 23.1 L (24-32.6) mmol/L Anion Gap 14.6 H (6.8-13.8) mmol/L Creatinine 1.61 H (0.4-1.4) mg/dL Est GFR (Non-Af Amer) 49 L (60-130) mL/min Random Glucose 271 H D (70-110) mg/dL - Exam Exam Narrative: MRI reviewed - concerns for osteomyelitis of the proximal phalanx of the 2nd toe, 2nd metatarsal and 3rd metatarsal heads, likely septic arthritis of the 2nd MtPJ. Constitutional: Present: Alert, Oriented x3, Cooperative Extremity: Present: pedal edema Skin Exam: Present: other - Erythema localized to the left forefoot, most notable about the bases of the 2nd and 3rd toes with associated swelling - slight improvement from visit yesterday. There remains some active sero- purulent drainage from the 2nd interspace that appears to be coming from an ulceration at the lateral base of the 2nd toe. Skin is macerated and sloughing between these toes. Area is exquisitly tender to touch. Previous puncture to plantar foot underlying area between 2nd and 3rd metatarsal heads remains closed. Assessment/Plan - Problems/Diagnosis (1) Osteomyelitis Problem: Acute Qualifiers: Osteomyelitis type: unspecified type Osteomyelitis location: foot Laterality: left Qualified Code(s): M86.9 - Osteomyelitis, unspecified Narrative: MRI results reviewed with pt/. Discussed treatment options. Recommend partial 2nd ray amputation and 3rd metatarsal head resection. Discussed risks and benefits of this surgery, no guarantees given or implied. Pt in agreement with this plan. Will plan to go to OR tomorrow afternoon. Will place NPO after 6:00 am tomorrow. Will continue current IV ABX, can adjust pending surgical cultures to be obtained tomorrow. New dressing of dry gauze and tape applied.
[2018-06-22] MEDS ORDERED: VANCOMYCIN HCL LEVEL XX ONE (18:30)
[2018-06-22] MEDS: VANCOMYCIN HCL 1.5 GM in DEXTROSE 5 % IN WATER 500 ML IV SCH ×2 (19:45)
[2018-06-22] MEDS: GABAPENTIN 100 MG CAPSULE PO SCH (21:42)
[2018-06-22] MEDS: traMADol HCL 50 MG TABLET PO SCH (21:45)
[2018-06-23] MEDS: NORMAL SALINE 1,000 ML IV PRN ×2 (04:45→15:02)
[2018-06-23] MEDS ORDERED: LIDOCAINE HCL 10 ML VIAL IJ ONE ×2 (06:00→16:10)
[2018-06-23] MEDS ORDERED: BUPIVACAINE HCL 50 ML VIAL IJ ONE ×2 (06:00→16:08)
[2018-06-23] MEDS: INSULIN LISPRO 100 UNITS/ML VIAL SC SCH ×4 (07:05→20:51)
--- NOTE | 2018-06-23 07:20 | PN ---
Subjective - Date and Time Seen Date: 06/23/18 Time: 07:15 Subjective Narrative: Patient's pain is controlled. He continues to resist humalog doses greater than 4, reporting he is worried it will drop too far. He allowed 9 yesterday, but didn't remember that later. The most he has allowed since yesterday evening was 6 U, and his blood sugar has been 400 this morning. He is NPO pending surgery with Dr. Jain this afternoon. Objective - Review of Systems Generalized/Overall Review: Denies: Fever Respiratory: Denies: Cough Cardiac: Denies: Chest Pain Abdominal: Reports: Other - decreased appetite - "nothing tastes good" Musculoskeletal Complaints: Reports: Other - left foot swelling - Vitals Vitals: Last Vital Signs Temp 36.5 C 06/23/18 02:50 Pulse 83 06/23/18 02:50 Resp 16 06/23/18 02:50 BP 153/72 H 06/23/18 02:50 Pulse Ox 99 06/23/18 02:50 - Exam Constitutional: Present: Alert, Oriented x3 Respiratory: Present: normal breath sounds, no respiratory distress Cardiovascular/Chest: Present: regular rate, rhythm, no murmur Abdomen: Present: Normal bowel sounds, soft, nontender Extremity: Present: other - left foot edema, similar to yesterday. Erythematous 2nd toe. Gauze in place between 2nd and 3rd toes Neurologic: Present: normal mood/affect Assessment/Plan - Problems/Diagnosis (1) Osteomyelitis Problem: Acute Qualifiers: Osteomyelitis type: unspecified type Osteomyelitis location: foot Laterality: left Qualified Code(s): M86.9 - Osteomyelitis, unspecified Narrative: Day #5 of vanc. Clindamycin changed to levaquin 06/21. With his diabetic history, and injury stepping on a nail, strong possibility of pseudomonas. MRI findings: :Septic arthritis of the second metatarsophalangeal joint, with osteomyelitis of the second proximal phalanx and distal portion of the second metatarsal bone as discussed above. Likely osteomyelitis of the distal third metatarsal bone involving predominantly the head/neck, with a potential pathologic fracture at the metatarsal neck. Nondisplaced fracture of the base of the first metatarsal bone. No definable soft tissue fluid collection/abscess.. Dr. Jain is also following. He is NPO for procedure this afternoon. WBC not elevated, and he is afebrile. He has had this infection for approximately 2 months. He also has diabetes, and discussed the importance of keeping his blood sugars less than 200 for optimal healing. (2) Diabetes Problem: Chronic Qualifiers: Diabetes mellitus type: type 1 Narrative: He gives himself 35 U lantus daily, and SSI with meals, never more than 4 U at a time. He has an appt with endocrinology in August. He admits to having difficulty eating regularly, and his blood sugars fluctuate. He understands that eating consistently will help regulate his sugars, but can't always carry that out. He is NPO pending procedure, and will resume his lantus when he is no longer NPO. Continue low SSI. He is extremely resistant to being given any more than 4 U humalog at a time, and his glucose has been greater than 300 for most of the last 24 hours. Was given 9 U yesterday at lunch, but doesn't remember allowing that. Has only allowed 6 U to be given, when his SSI recommended 12 U. He is somewhat jittery on exam, and suspect this is due to his hesitancy at allowing others to manage his glucose. He said yesterday he powers s better glucose control at home than here. (3) Acute kidney injury Problem: Acute Narrative: Improving. Recheck in the morning. (4) HTN (hypertension) Problem: Chronic Narrative: continue home amlodiine (5) Joint pain Problem: Chronic Narrative: continue home gabapentin, tramadol.
[2018-06-23] MEDS: INSULIN GLARGINE,HUM.REC.ANLOG 100 UNITS/ML VIAL SC SCH (10:10)
[2018-06-23] MEDS: LEVOFLOXACIN IN DEXTROSE 5 % 750 MG/150 ML BAG IV SCH (12:15)
--- NOTE | 2018-06-23 17:10 | ANES ---
Post Anesthesia Discharge - Transfer of Care Transfer of Care handoff given to nurse: Yes - Discharge to A[facility] Discharge to ASU-no complications/pt stable: No - Comfortable in room.
[2018-06-23] MEDS: VANCOMYCIN HCL 1.5 GM in DEXTROSE 5 % IN WATER 500 ML IV SCH ×2 (18:48)
[2018-06-23] MEDS: HYDROcodone/ACETAMINOPHEN 1 EACH TABLET PO PRN ×2 (18:48→22:57)
--- NOTE | 2018-06-23 19:43 | ANES ---
Post Anesthesia Assessment - Vital Signs Vitals: Last Vital Signs Temp 37.1 C 06/23/18 18:34 Pulse 76 06/23/18 18:50 Resp 16 06/23/18 18:50 BP 144/74 H 06/23/18 18:50 Pulse Ox 100 06/23/18 18:50 Airway Patency: Normal - Mental Status Level Of Consciousness: Awake, Alert, Appropriate - Pain Level Pain Score: 0 - N/V Assessment Nausea/Vomiting Presence: None Dehydration:: No
[2018-06-23] MEDS: traMADol HCL 50 MG TABLET PO SCH (20:46)
[2018-06-23] MEDS: GABAPENTIN 100 MG CAPSULE PO SCH (20:46)
[2018-06-23] MEDS ORDERED: MORPHINE SULFATE 2 MG/ML DISP.SYRIN IV PRN (21:26)
[2018-06-24] MEDS: NORMAL SALINE 1,000 ML IV PRN ×2 (02:39→11:32)
[2018-06-24] MEDS: HYDROcodone/ACETAMINOPHEN 1 EACH TABLET PO PRN ×4 (03:04→19:05)
[2018-06-24 05:52] LABS: Anion Gap 11.1 mmol/L (6.8-13.8); Calcium * 8.7 mg/dL (7.9-10.9); Carbon Dioxide 26.6 mmol/L (24-32.6); Estimated Creat Clear 53.9; Potassium 3.7 mmol/L (3.4-4.6)
[2018-06-24] MEDS ORDERED: BUPIVACAINE HCL 50 ML VIAL IJ ONE (06:00)
[2018-06-24] MEDS ORDERED: LIDOCAINE HCL 10 ML VIAL IJ ONE (06:00)
[2018-06-24] MEDS: INSULIN LISPRO 100 UNITS/ML VIAL SC SCH ×4 (07:42→20:10)
--- NOTE | 2018-06-24 08:00 | PN ---
Subjective - Date and Time Seen Date: 06/24/18 Time: 07:55 Subjective Narrative: Patient underwent surgery yesterday afternoon, and had increased pain yesterday evening. He reports using one dose of morphine overnight, which helped get ahead of his pain and he was then able to sleep on and off. He ate lasagna after surgery. He had a low blood glucose this morning of 55. No new concerns. Objective - Review of Systems Generalized/Overall Review: Denies: Fever Respiratory: Denies: Shortness of Breath Cardiac: Denies: Chest Pain Abdominal: Denies: Vomiting, Diarrhea Musculoskeletal Complaints: Reports: Other - left foot osteomyelitis, POD #1 partial ray and metatarsal resection Neurological: Denies: Headache - Vitals Vitals: Last Vital Signs Temp 36.5 C 06/24/18 06:39 Pulse 84 06/24/18 06:39 Resp 14 06/24/18 06:39 BP 155/70 H 06/24/18 06:39 Pulse Ox 100 06/24/18 06:39 - Abnormal Lab Findings Abnormal Lab Findings: Abnormal Lab Results 06/24/18 Range/Units 05:37 Chloride 108 H (97-106) mmol/L Creatinine 1.55 H (0.4-1.4) mg/dL Est GFR (Non-Af Amer) 51 L (60-130) mL/min - Exam Constitutional: Present: Alert, Oriented x3, Cooperative Respiratory: Present: lungs clear, normal breath sounds, no respiratory distress Cardiovascular/Chest: Present: regular rate, rhythm Abdomen: Present: soft, nontender Extremity: Present: other - left foot in walking boot Neurologic: Present: normal mood/affect Assessment/Plan - Problems/Diagnosis (1) Osteomyelitis Problem: Acute Qualifiers: Osteomyelitis type: unspecified type Osteomyelitis location: foot Laterality: left Qualified Code(s): M86.9 - Osteomyelitis, unspecified Narrative: POD #1 partial second ray amputation and metatarsal resection. Will verify need for terminal manager vanc with Dr. Jain. If she agrees, will order PICC line. Did require one dose of morphine overnight, but will attempt to control pain with percocet. Continue levaquin. (2) Diabetes Problem: Chronic Qualifiers: Diabetes mellitus type: type 1 Narrative: He gives himself 35 U lantus daily, and SSI with meals, never more than 4 U at a time. He has an appt with endocrinology in August. He admits to having difficulty eating regularly, and his blood sugars fluctuate. He understands that eating consistently will help regulate his sugars, but can't always carry that out. 35 U lantus resumed yesterday, and he had a low of 55 this morning. Reduced lantus to 30 U daily. Continue SSI as he allows. He may qualify for a pump after discharge. (3) Acute kidney injury Problem: Acute (4) HTN (hypertension) Problem: Chronic Narrative: Continue home amodipine. (5) Joint pain Problem: Chronic Narrative: Continue gabapentin. PRN tramadol, his home dose.
[2018-06-24] MEDS: INSULIN GLARGINE,HUM.REC.ANLOG 100 UNITS/ML VIAL SC SCH (08:52)
[2018-06-24] MEDS: amLODIPine BESYLATE 10 MG TABLET PO SCH (10:21)
[2018-06-24] MEDS: LEVOFLOXACIN IN DEXTROSE 5 % 750 MG/150 ML BAG IV SCH (11:35)
--- NOTE | 2018-06-24 15:12 | PN ---
Subjective - Date and Time Seen Date: 06/24/18 Time: 15:02 Subjective Narrative: Pt evaluated at bedside resting. States that his pain is being well controlled with current pain medications. He has kept surgical boot on his foot since surgery. States that he has been up with PT a couple of times to walk with crutches or a cane. Denies any N/V/F/C. Objective - Review of Systems Generalized/Overall Review: Denies: Chills, Fever, Malaise Respiratory: Denies: Shortness of Breath Abdominal: Denies: Nausea, Vomiting, Diarrhea Musculoskeletal Complaints: Reports: Other - left foot pain - controlled - Vitals Vitals: Last Vital Signs Temp 36.9 C 06/24/18 11:08 Pulse 84 06/24/18 11:08 Resp 20 06/24/18 11:08 BP 160/87 H 06/24/18 11:08 Pulse Ox 99 06/24/18 11:08 - Abnormal Lab Findings Abnormal Lab Findings: Abnormal Lab Results 06/24/18 Range/Units 05:37 Chloride 108 H (97-106) mmol/L Creatinine 1.55 H (0.4-1.4) mg/dL Est GFR (Non-Af Amer) 51 L (60-130) mL/min - Exam Constitutional: Present: Alert, Oriented x3, Cooperative, No distress Extremity: Present: pedal edema Skin Exam: Present: other - Incision to amputation site of 2nd ray well approximated with sutures intact. Area at proximal aspect of incision with packing in place. Packing pulled, bloody drainage only. Erythema to the foot has resolved following surgery and ABX therapy. Still with some localized swelling. Mild tenderness on palpation. Appearance: Present: appropriate appearance Eye contact: Present: cooperative Assessment/Plan - Problems/Diagnosis (1) Osteomyelitis Problem: Acute Qualifiers: Osteomyelitis type: unspecified type Osteomyelitis location: foot Laterality: left Qualified Code(s): M86.9 - Osteomyelitis, unspecified Narrative: Pt progressing as expected following amputation/metatarsal head resection. Packing replaced today. Foot dressed with DSD. To be kept CDI. Will plan to pull packing tomorrow with intentions not to replace. May continue to bear weight in surgical boot with crutch or cane assist. Elevate extremity at rest. May apply ice behind the ankle if needed. Continue pain medications as needed. Will continue with current ABX at this time. OR cultures pending. Plan to adjust when results available. Hope to send pt home on oral ABX if possible, likely 3 weeks of ABX following d/c.
[2018-06-24] MEDS: VANCOMYCIN HCL 1.5 GM in DEXTROSE 5 % IN WATER 500 ML IV SCH ×2 (19:07)
[2018-06-24] MEDS: traMADol HCL 50 MG TABLET PO SCH (20:21)
[2018-06-24] MEDS: GABAPENTIN 100 MG CAPSULE PO SCH (20:21)
[2018-06-25] MEDS: NORMAL SALINE 1,000 ML IV PRN (01:38)
[2018-06-25] MEDS: HYDROcodone/ACETAMINOPHEN 1 EACH TABLET PO PRN (02:37)
[2018-06-25] MEDS: INSULIN LISPRO 100 UNITS/ML VIAL SC SCH ×2 (07:01→13:05)
[2018-06-25] MEDS: INSULIN GLARGINE,HUM.REC.ANLOG 100 UNITS/ML VIAL SC SCH (09:11)
[2018-06-25] MEDS: amLODIPine BESYLATE 10 MG TABLET PO SCH (09:12)
--- NOTE | 2018-06-25 12:07 | PN ---
Subjective - Date and Time Seen Date: 06/25/18 Time: 12:07 Subjective Narrative: Pt evaluated at bedside resting. States that his pain is being well controlled with current pain medications. States that he is utilizing his surgical boot with all weightbearing activities as instructed. Has kept dressing CDI. Is elevating his foot when resting. Denies any N/V/F/C. Is ready to go home. Objective - Review of Systems Generalized/Overall Review: Denies: Chills, Fever, Malaise Cardiac: Denies: Edema Abdominal: Denies: Nausea, Vomiting, Diarrhea Musculoskeletal Complaints: Reports: Other - left foot pain - improving - Vitals Vitals: Last Vital Signs Temp 36.4 C 06/25/18 06:34 Pulse 85 06/25/18 09:12 Resp 14 06/25/18 06:34 BP 143/64 H 06/25/18 09:12 Pulse Ox 99 06/25/18 06:34 - Exam Constitutional: Present: Alert, Oriented x3, Cooperative, No distress Extremity: Present: pedal edema - improved Skin Exam: Present: other - Incision to amputation site of 2nd ray well approximated with sutures intact. Area at proximal aspect of incision with packing in place. Packing pulled, serosanguinous drainage only. Erythema to the foot has resolved following surgery and ABX therapy. Still with some localized swelling. Mild tenderness on palpation. Appearance: Present: appropriate appearance Eye contact: Present: cooperative Assessment/Plan - Problems/Diagnosis (1) Osteomyelitis Problem: Acute Qualifiers: Qualified Code(s): M86.9 - Osteomyelitis, unspecified Narrative: Pt progressing as expected following amputation/metatarsal head resection. Packing pulled today and is not replaced. Foot re-dressed with DSD. To be kept CDI. May continue to bear weight in surgical boot with crutch or cane assist. Elevate extremity at rest. May apply ice behind the ankle if needed. Continue pain medications as needed. Ok for d/c home today on oral ABX (Levaquin). Pt will be off work until healed, plan 6 weeks at this time. No running, jumping, climbing, or lifting over 20 lbs. Educated on SOI and he is to seek medical attention immediately should any develop. Will plan f/u in my office on 06/28/18.
[2018-06-25] MEDS: LEVOFLOXACIN IN DEXTROSE 5 % 750 MG/150 ML BAG IV SCH (13:06)
--- NOTE | 2018-06-25 13:13 | DS ---
(1) Osteomyelitis Problem: Acute Qualifiers: Osteomyelitis type: unspecified type Osteomyelitis location: foot Laterality: left Qualified Code(s): M86.9 - Osteomyelitis, unspecified (2) Diabetes Problem: Chronic Qualifiers: Diabetes mellitus type: type 1 (3) Acute kidney injury Problem: Acute (4) HTN (hypertension) Problem: Chronic (5) Joint pain Problem: Chronic Description of Stay: Patient with PMHx of Type I diabetes presents with a two month history of left foot wound after stepping on a nail. He underwent soft tissue debridement on April 21. He had courses of outpatient antibiotics, but had not taken any in the last month. His foot started to swell again, and he developed redness next to his toes, and presented to the ED. He was started on IV vancomycin and clinda. Ortho was initially consulted, then podiatry. Xray was strongly suggestive of osteomyelitis. He presented on a Thursday, and initial MRI attempt was made Thursday, however he was unable to hold still for the MRI. Ati van was given, which had a paradoxical effect, and developed some vomiting. Antibiotic clinda was changed to levaquin. Thursday, he was sedated and MRI was successful. Results showed "Septic arthritis of the second metatarsophalangeal joint, with osteomyelitis of the second proximal phalanx and distal portion of the second metatarsal bone as discussed above. 2. Likely osteomyelitis of the distal third metatarsal bone involving predominantly the head/neck, with a potential pathologic fracture at the metatarsal neck. 3. Nondisplaced fracture of the base of the first metatarsal bone. 4. No definable soft tissue fluid collection/abscess." He went 2nd toe amputation, resection of 2nd and 3rd metatarsal head resection. His foot exam improved the next day, and he was able to ambulate to the bathroom. Diabetic control was difficult. His 35 U lantus was held, as he was NPO several mornings pending procedures. He does not give himself more than 4 U humalog at a time at home, and was extremely resistant to higher doses here, even though his glucose was higher than 400 on occasion. After his lantus was resumed and he was eating, he still had am glucose readings in the 50's, despite a decreased dose of 30 U lantus. Recommend he take 20 U at home at first, and increase if his home glucose is consistently higher than 200. May qualify for an insulin pump. Procedures Performed: see notes below - left 2nd toe amputation, left 2nd and 3rd metatarsad head resection Results and Findings: Lab Pending Results 06/19/18 15:45: WBC 9.9, RBC 3.66 L, Hgb 11.3 L, Hct 34.0 L, MCV 92.9, MCH 30.9, MCHC 33.2, RDW 11.9, Plt Count 344, MPV 8.8, Immature Gran % (Auto) 0.40, Immature Gran # (Auto) 0.04 H, Neutrophils % 70.0, Lymphocytes % 18.8 L, Monocytes % 7.1, Eosinophils % 3.3 H, Basophils % 0.4, Nucleated RBC % 0.0, Neutrophils # 6.9 H, Lymphocytes # 1.86, Monocytes # 0.7, Eosinophils # 0.3, Absolute Basophils 0.0 06/19/18 15:45: ESR 73 H 06/19/18 15:45: Sodium 134, Plasma Sodium 137, Potassium 4.3, Chloride 100, Carbon Dioxide 29.3, Anion Gap 9.0, BUN 22, Creatinine 1.91 H, Est GFR (Non-Af Amer) 40 L, BUN/Creatinine Ratio 11.5, Random Glucose 313 H, Calcium 8.1, Calcium Adj for Albumin 8.1 L, Total Bilirubin 0.3, AST 11, ALT 17 L, Alkaline Phosphatase 116, C-Reactive Prot, Quant 3.9 H, Total Protein 7.6, Albumin 3.6 06/19/18 15:45: Lactic Acid, Venous 0.9 06/20/18 07:11: Sodium 143 H, Plasma Sodium 142, Potassium 3.7, Chloride 106, Carbon Dioxide 27.3, Anion Gap 13.4, BUN 18, Creatinine 1.66 H, Est GFR (Non-Af Amer) 47 L, BUN/Creatinine Ratio 10.8, Random Glucose 42 L D, Calcium 8.4 06/22/18 05:36: Sodium 138, Plasma Sodium 141, Potassium 4.7 H D, Chloride 105, Carbon Dioxide 23.1 L, Anion Gap 14.6 H, BUN 19, Creatinine 1.61 H, Est GFR (No n-Af Amer) 49 L, BUN/Creatinine Ratio 11.8, Random Glucose 271 H D, Calcium 8.6 06/22/18 05:36: WBC 5.0 D, RBC 3.39 L, Hgb 10.2 L, Hct 30.7 L, MCV 90.6, MCH 30.1, MCHC 33.2, RDW 11.7, Plt Count 326, MPV 8.8, Immature Gran % (Auto) 0.20, Immature Gran # (Auto) 0.01, Neutrophils % 64.8, Lymphocytes % 23.0, Monocytes % 8.0, Eosinophils % 3.4 H, Basophils % 0.6, Nucleated RBC % 0.0, Neutrophils # 3.2, Lymphocytes # 1.15 L, Monocytes # 0.4, Eosinophils # 0.2, Absolute Basophils 0.0 06/22/18 18:37: Vancomycin Trough 14.3 06/23/18 17:10: Pathology Specimen Spec to path 06/24/18 05:37: Sodium 142, Plasma Sodium 142, Potassium 3.7 D, Chloride 108 H, Carbon Dioxide 26.6, Anion Gap 11.1, BUN 17, Creatinine 1.55 H, Est GFR (Non-Af Amer) 51 L, BUN/Creatinine Ratio 11.0, Random Glucose 70 D, Calcium 8.7 Discharge Location: Home Disposition: Home self-care Condition: Good Discharge Activity: Activity as tolerated Discharge Diet: Consistent carbs Additional Patient Instructions (free text): Post op appointment with Dr. Jain on ThursdayJune 28 at 2:15pm Prescriptions (Any new or edited meds): HYDROcodone/ACETAMINOPHEN [Saline 5-325] 1 each PO Q4H PRN #10 tablet PRN Reason: Pain Levofloxacin [Levaquin] 750 mg PO DAILY #21 tablet Complete Home Medications List: Complete Home Medication List: Amlodipine Besylate 10 mg PO DAILY 06/19/18 Gabapentin [Neurontin] 100 mg PO DAILY 06/19/18 Insulin Glargine,Hum.rec.anlog [Lantus] 35 units SC HS 06/19/18 Insulin Lispro [Humalog] 100 unit SQ ACHS 06/19/18 traMADol HCL [Ultram] 50 mg PO DAILY 06/19/18 HYDROcodone/ACETAMINOPHEN [Saline 5-325] 1 each PO Q4H PRN #10 tablet 06/25/18 Levofloxacin [Levaquin] 750 mg PO DAILY #21 tablet 06/25/18
[2018-06-25 14:28] VITALS: BP 154/68
[2018-06-25] MEDS ORDERED: VANCOMYCIN HCL LEVEL XX ONE (18:30)
[2018-06-26] MEDS ORDERED: INSULIN GLARGINE,HUM.REC.ANLOG 100 UNITS/ML VIAL SC SCH ×2 (09:00)
== END 2018-06-25 14:55 | disposition home or self-care (01) | DRG 504 ==
LOC: MS 15:05 → ER 15:05 → MS 17:45
PROVIDERS: ADMIT Family Medicine; ATTEND Family Medicine
DX: R11.10 Vomiting, unspecified; M25.542 Pain in joints of left hand; E10.22 Type 1 diabetes mellitus with diabetic chronic kidney disease; F17.200 Nicotine dependence, unspecified, uncomplicated; Z79.891 Long term (current) use of opiate analgesic; T42.4X5A Adverse effect of benzodiazepines, initial encounter; N18.9 Chronic kidney disease, unspecified; M00.9 Pyogenic arthritis, unspecified; M25.511 Pain in right shoulder; M86.172 Other acute osteomyelitis, left ankle and foot; I12.9 Hypertensive chronic kidney disease with stage 1 through stage 4 chronic kidney disease, or unspecified chronic kidney disease; M84.675A Pathological fracture in other disease, left foot, initial encounter for fracture; M25.541 Pain in joints of right hand; N17.9 Acute kidney failure, unspecified; Y92.230 Patient room in hospital as the place of occurrence of the external cause; M25.512 Pain in left shoulder; Z79.4 Long term (current) use of insulin
CPT/HCPCS: 36415; 70030; 73630; 73720; 80048; 80053; 80202; 83605; 85025; 85652; 86140; 87040; 87070; 87081; 88305; 88311; 88312; 93005; 96365; 97116; 97161; 99285; J2405